=== PATIENT | male | born 1990 | race Caucasian/White ===

== ENCOUNTER 2024-05-15 07:54 | Outpatient (RCR) | payer MEDICAID, SELFPAY | END 2024-06-04 23:59 | disposition home or self-care (01) | LOC: SCTC 07:54 | PROVIDERS: Referring Provider Internal Medicine Hematology & Oncology; Visit Provider Nurse Practitioner Family | DX: I26.99 Other pulmonary embolism without acute cor pulmonale (principal); Z79.01 Long term (current) use of anticoagulants; Z87.891 Personal history of nicotine dependence | CPT/HCPCS: 99213; G0463 ==